=== PATIENT | female | born 1965 | race Caucasian/White ===

== ENCOUNTER 2017-11-19 14:48 | Inpatient (IN) | payer MEDICARE, MEDICAID ==
[2017-11-19 16:14] LABS: % BASOPHILS 0.9 % (0.0-2.0); % EOSINOPHILS 2.3 % (0.0-5.0); % LYMPHOCYTES 29.5 % (20.0-50.0); % MONOCYTES 9.2 % (2.0-10.0); % NEUTROPHILS 58.1 % (40.0-80.0); EOSINOPHILE ABSOLUTE 0.1 Th/cmm (0.1-0.4); HEMATOCRIT 39.2 % (41.0-60); HEMOGLOBIN 13.3 gm/dL (12-16); LYMPHOCYTE ABSOLUTE 1.5 Th/cmm (1.5-3.0); MEAN CELL VOLUME 90.1 fl (81-100); MEAN CORPUSCULAR HEMOGLOBIN 30.6 pg (27.0-31.0); MEAN PLATELET VOLUME 7.3 fl; MONOCYTE ABSOLUTE 0.5 Th/cmm (0.3-1.0); NEUTROPHILE ABSOLUTE 3.1 Th/cmm (1.8-8.0); PLATELET COUNT 195 Th/cmm (150-400); RED BLOOD COUNT 4.35 Mil/cmm (3.80-5.10); RED CELL DISTRIBUTION WIDTH 13.1 % (11.5-20.0); WHITE BLOOD COUNT 5.2 Th/cmm (4.8-10.8)
[2017-11-19 16:48] LABS: ACETAMINOPHEN < 10.0 ug/mL (10.0-30.0); ALB/GLOB RATIO 1.2 (1.0-1.8); ALBUMIN 3.5 gm/dL (3.7-5.3); ALKALINE PHOSPHATASE 95 U/L (34-104); ANION GAP 11.8 (7.0-16.0); BILIRUBIN,TOTAL 0.5 mg/dL (0.3-1.0); BUN - UREA NITROGEN 21 mg/dL (7-25); CARBON DIOXIDE 28.7 mEq/L (21.0-31.0); CHLORIDE 100 mEq/L (98-107); CHOLESTEROL 237 mg/dL (<200); GFR AFRICAN-AMERICAN > 60.0 ml/min (>90); GFR NON AFRICAN-AMERICAN > 60.0 ml/min; GLUCOSE 142 mg/dL (70-105); HDL -HIGH DENSITY LIPOPROTEIN 41 mg/dL (23-92); POTASSIUM SERUM 3.5 mEq/L (3.5-5.1); SALICYLATES (ASPIRIN) < 25.0 mg/L (30.0-100.0); SGOT 26 U/L (13-39); SGPT/ALT 17 U/L (7-52); SODIUM SERUM 137 mEq/L (136-145); TOTAL PROTEIN,SERUM 6.5 gm/dL (6.0-8.3); TRIGLYCERIDES 318 mg/dL (<150)
--- NOTE | 2017-11-19 17:09 | ED Physician Chart ---
ED Chief Complaint/HPI - Patient Information Date Seen:: 11/19/17 Time Seen:: 15:00 Chief Complaint:: Agitation History of Present Illness:: onset x 3 days of agitation and aggressive behavior; no report of trauma, SIs, H /As, neck pain, C/P, SOB, Abd. Pain, A/N/V/D/C, fever, chills, or urinary s/s Allergies:: Allergies Allergy/AdvReac Type Severity Reaction Status Date / Time No Known Allergies Allergy Verified 11/19/17 15:14 Vitals:: Vital Signs - 8 hr 11/19/17 15:05 Temp 97.3 F HR 61 RR 16 BP 123/73 O2 Sat % 97 Historian:: Patient Review:: Nurse's Note Reviewed ED Review of Systems - Review of Systems General/Constitutional: No fever, No chills, No weight loss, No weakness, No diaphoresis, No edema, No loss of appetite Skin: No skin lesions, No rash, No bruising Head: No headache, No light-headedness Eyes: No loss of vision, No pain, No diplopia ENT: No earache, No nasal drainage, No sore throat, No tinnitus Neck: No neck pain, No swelling, No thyromegaly, No stiffness, No mass noted Cardio Vascular: No chest pain, No palpitations, No PND, No orthopnea, No edema Pulmonary: No SOB, No cough, No sputum, No wheezing GI: No nausea, No vomiting, No diarrhea, No pain, No melena, No hematochezia, No constipation, No hematemesis G/U: No dysuria, No frequency, No hematuria, No nacturia [employer]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, No abnormal vaginal bleed, No contraction Musculoskeletal: No bone or joint pain, No back pain, No muscle pain Endocrine: No polyuria, No polydipsia Psychiatric: Prior psych history, Depression, Anxiety, No suicidal ideation, No homicidal ideation, No auditory hallucination, No visual hallucination Hematopoietic: No bruising, No lymphadenopathy Allergic/Immuno: No urticaria, No angioedema Neurological: No syncope, No focal symptoms, No weakness, No paresthesia, No headache, No seizure, No dizziness, No confusion, No vertigo ED Past Medical History - Past Medical History Obtainable: Yes Past Medical History: HTN Family History: HTN Social History: Non Smoker, No Alcohol, No Drug Use, Single, Care Facility Surgical History: None Psychiatricy History: Depression, Bipolar Medication: Reviewed Family Medical History - Family Member Mother History Unknown: Yes ED Physical Exam - Physical Examination General/Constitutional: Awake, Well-developed, well-nourished, Alert, No distress, GCS 15, Non-toxic appearing, Ambulatory Head: Atraumatic Eyes: Lids, conjuctiva normal, PERRL, EOMI Skin: Nl inspection, No rash, No skin lesions, No ecchymosis, Well hydrated, No lymphadenopathy ENMT: External ears, nose nl, TM canals nl, Nasal exam nl, Lips, teeth, gums nl , Oropharynx nl, Tonsils nl Neck: Nontender, Full ROM w/o pain, No JVD, No nuchal rigidity, No bruit, No mass, No stridor Respiratory: Nl effort/Exclusion, Clear to Auscultation, No Wheeze/Rhonchi/Rales Cardio Vascular: RRR, No murmur, gallop, rubs, NL S1 S2, Carotid/Femoral/Distal pulses equal bilaterally GI: No tenderness/rebounding/guarding, No organomegaly, No hernia, Normal BS's, Nondistended, No mass/bruits, No McBurney tenderness : No CVA tenderness Extremities: No tenderness or effusion, Full ROM, normal strength in all extremities, No edema, Normal digits & nails Neuro/Psych: Alert/oriented, DTR's symmetric, Normal sensory exam, Normal motor strength, Judgement/insight normal, Mood normal, Normal gait, No focal deficits Other Neuro/Psych comments:: + Psychomotor Agitation; no SIs; Mood/Affect: Labile Misc: Normal back, No paraspinal tenderness ED Labs/Radiology/EKG Results - Lab Results Results: Laboratory Tests 11/19/17 11/19/17 15:55 15:55 WBC 5.2 RBC 4.35 Hgb 13.3 Hct 39.2 L MCV 90.1 MCH 30.6 MCHC Differential 34.0 RDW 13.1 Plt Count 195 MPV 7.3 Neutrophils % 58.1 Lymphocytes % 29.5 Monocytes % 9.2 Eosinophils % 2.3 Basophils % 0.9 Sodium 137 Potassium 3.5 Chloride 100 Carbon Dioxide 28.7 Anion Gap 11.8 BUN 21 Creatinine 1.0 Est GFR ( Amer) > 60.0 Est GFR (Non-Af Amer) > 60.0 BUN/Creatinine Ratio 21.0 Glucose 142 H Calcium 9.0 Total Bilirubin 0.5 AST 26 ALT 17 Alkaline Phosphatase 95 Total Protein 6.5 Albumin 3.5 L Globulin 3.0 Albumin/Globulin Ratio 1.2 Triglycerides 318 H Cholesterol 237 H LDL Cholesterol Direct 148 HDL Cholesterol 41 Salicylates < 25.0 L Acetaminophen < 10.0 L Ethyl Alcohol < 10 Comments:: unremarkable - EKG Interpretations EKG Time:: 16:06 Rate & Rhythm: 58; SB Comments:: non-specific st-t changes ED Septic Shock - . Is Septic Shock (SBP<90, OR Lactate>4 mmol\L) present?: No - <6hrs of presentation: Vital Signs: Vital Signs - 8 hr 11/19/17 15:05 Temp 97.3 F HR 61 RR 16 BP 123/73 O2 Sat % 97 ED Reassessment (Disposition) - Reassessment Reassessment Condition:: Improved - Diagnosis Diagnosis:: Agitation; Depression; Bipolar Disorder; Psychosis; Medical Clearance - Aftercare/Follow up Instructions Aftercare/Follow-Up Instructions:: Counseled pt regarding lab results/diagnosis & need follow up, Counseled pt & family regarding lab results/diagnosis & need follow up - Patient Disposition Discharge/Transfer:: Acute Care w/in this hosp Admitted to:: [facility] Condition at Disposition:: Stable, Improved ED Discharge Plan - Patient Disposition Instructions: Psychosis
[2017-11-19 17:56] LABS: URINE BILIRUBIN NEGATIVE (NEGATIVE); URINE BLOOD NEGATIVE (NEGATIVE); URINE GLUCOSE (UA) NEGATIVE (NEGATIVE); URINE KETONE NEGATIVE (NEGATIVE); URINE LEUKOCYTE ESTERASE MODERATE (NEGATIVE); URINE MICROSCOPIC INDICATED? YES; URINE NITRATE NEGATIVE (NEGATIVE); URINE PH 6.5 (4.6 - 8.0); URINE PROTEIN NEGATIVE (NEGATIVE); URINE SOURCE CLEAN C; URINE UROBILINOGEN 0.2 E.U./dL (0.2 - 1.0)
[2017-11-19 18:10] LABS: URINE BACTERIA NONE SEEN /hpf (NONE SEEN); URINE CLARITY CLEAR (CLEAR); URINE COLOR YELLOW; URINE EPITHELIAL CELLS FEW /lpf (FEW); URINE RBC NONE SEEN /hpf (0-5)
[2017-11-19 18:51] LABS: AMPHETAMINE URINE NEGATIVE (NEGATIVE); BARBITURATES URINE NEGATIVE (NEGATIVE); BENZODIAZEPINES QUAL URINE POSITIVE (NEGATIVE); CANNABINOID THC NEGATIVE (NEGATIVE); COCAINE METABOLITE QUAL URINE NEGATIVE (NEGATIVE); METHADONE URINE NEGATIVE (NEGATIVE); METHAMPHETAMINES QUAL URINE NEGATIVE (NEGATIVE); OPIATES (MORPHINE) QUAL. URINE NEGATIVE (NEGATIVE); PHENCYCLIDINE (PCP) URINE NEGATIVE (NEGATIVE); TRICYCLICS (TCA) QUAL. URINE NEGATIVE (NEGATIVE)
[2017-11-19 19:17] VITALS: BP 126/70
[2017-11-20] MEDS ORDERED: Albuterol Nebulizer 2.5mg/3mL HHN PRN (00:01)
[2017-11-20] MEDS ORDERED: Acetaminophen 500 MG TAB PO PRN (00:01)
[2017-11-20] MEDS: Levothyroxine 0.1 Mg Tab PO SCH (09:18)
[2017-11-20] MEDS: Potassium Chloride 10 mEq ER Tab PO SCH (09:18)
[2017-11-20] MEDS: Lactobacillus Rhamnosus GG 15 Billion CFU CAP.SPRINK PO SCH (09:18)
[2017-11-20] MEDS: Pantoprazole 40 mg EC Tab PO SCH (09:24)
--- NOTE | 2017-11-20 09:28 | History and Physical ---
History of Present Illness - HPI Chief Complaint: Increased in agitation HPI: Patient was send to ER due to increased in agitation. Vital Signs: Last Vital Signs Temp 97.8 F 11/19/17 20:00 Pulse 60 11/19/17 20:00 Resp 20 11/19/17 20:00 BP 136/60 11/20/17 09:18 Pulse Ox 95 11/19/17 20:00 Past Medical History Cardiovascular: Report: CAD, HTN Pulmonary: Report: No Pertinent Hx RAYON CONER: Report: Dementia GI: Report: No Pertinent Hx Psych: Report: Schizophrenia Musculoskeletal: Report: No Pertinent Hx Rheumatologic: Report: No pertinent Hx Infectious Disease: Report: No Pertinent Hx Renal/: Report: No Pertinent Hx Endocrine: Report: Hyperthyroidism - Past Surgical History Past Surgical History: No pertinent Hx Family Medical History - Family Member Mother History Unknown: Yes Social History Smoke: No Alcohol: None Drugs: None Lives: Snf Domestic Violence: Negative - Medications Home Medications: Home Medication Medication Instructions Recorded Type Acetaminophen [Tylenol Extra 500 mg PO Q6H PRN 11/19/17 History Strength] Albuterol Sulfate [Proair Hfa] 90 mcg IH Q6H PRN 11/19/17 History Cholecalciferol (Vitamin D3) 2 tab PO DAILY 11/19/17 History [Vitamin D3] Divalproex ER [Depakote ER] 1,000 mg PO HS 11/19/17 History Divalproex ER [Depakote ER] 500 mg PO DAILY 11/19/17 History Furosemide [Lasix] 40 mg PO DAILY 11/19/17 History L.acidoph,Paracasei, B.lactis 1 each PO DAILY 11/19/17 History [Probiotic] Levothyroxine [Synthroid] 100 mcg PO DAILY 11/19/17 History Lorazepam [Ativan] 0.5 mg PO BID 11/19/17 History OLANZapine [ZyPREXA] 2.5 mg PO HS 11/19/17 History Pantoprazole [Protonix] 40 mg PO DAILY 11/19/17 History Paroxetine HCl [Paxil] 20 mg PO DAILY 11/19/17 History Potassium Chloride 10 meq PO DAILY 11/19/17 History Propranolol HCl [Inderal] 20 mg PO BID 11/19/17 History - Allergies Allergies/Adverse Reactions: Allergies Allergy/AdvReac Type Severity Reaction Status Date / Time No Known Allergies Allergy Verified 11/19/17 15:14 Review of Systems - Review of Systems Constitutional: Report: No Significant Eyes: Report: No Significant ENT: Report: No Significant Respiratory: Report: No Significant Cardiovascular: Report: No Significant Gastrointestinal: Report: No Significant Genitourinary: Report: No Significant, Frequency Skin: Report: No Significant Neurological: Report: No Significant Physical Exam - Physical Exam HEENT: Report: Ears Nose Throat within normal limits Neck: Report: Within normal limits Cardiovascular Systems: Report: Regular, Rate and Rhythm Respiratory: Report: Breath Sounds are within normal limits Abdomen: Report: Non-tender to palpation Back: Report: Inspection of back is within normal limits. Extremities: Report: Non-tender to palpation. Skin: Report: Color of skin is within normal limits, Warm, Dry Neuro/Psych: Report: Disoriented to name time or place - Lab Results All Lab Results last 24 hours: Laboratory Results - last 24 hr 11/19/17 11/19/17 11/19/17 17:50 17:50 17:50 Urine Source CLEAN C Urine Color YELLOW Urine Clarity CLEAR Urine pH 6.5 Ur Specific [place] 1.010 Urine Protein NEGATIVE Urine Glucose (UA) NEGATIVE Urine Ketones NEGATIVE Urine Blood NEGATIVE Urine Nitrate NEGATIVE Urine Bilirubin NEGATIVE Urine Urobilinogen 0.2 Ur Leukocyte Esterase MODERATE H Urine RBC NONE SEEN Urine WBC 6-10 H Ur Epithelial Cells FEW Urine Bacteria NONE SEEN Urine Test NEGATIVE Urine Opiates Screen NEGATIVE Urine Methadone Screen NEGATIVE Ur Barbiturates Screen NEGATIVE Ur Tricyclics Screen NEGATIVE Ur Phencyclidine Scrn NEGATIVE Amphetamines Screen NEGATIVE U Methamphetamines Scrn NEGATIVE U Benzodiazepines Scrn POSITIVE H U Cocaine Metab Screen NEGATIVE U Cannabinoids Screen NEGATIVE - Assessment Assessment: Patient is awake, alert, calm, confused Dx: Increased in agitation, Schizophrenia, Hypothyroidism, HTN, Obesity. - Plan Plan: Patient under Psychiatric care, Continue [facility] meds. Will continue to monitor.
[2017-11-20 18:58] LABS: A1C % 6.6 % (4.0-6.0)
--- NOTE | 2017-11-21 02:57 | Psychosocial Evaluation ---
DATE OF SERVICE: 11/19/2017 IDENTIFYING DATA: The patient is a 52-year-old woman, resident of a snf. Information obtained by directly interviewing the patient as well as reviewing the admission papers. JUSTIFICATION FOR HOSPITALIZATION: The patient is admitted here on a voluntary basis in view of her acute agitation and trying to hurt herself and hurt others and the patient could not be maintained at a lower level of care and hence has been referred over here. I have been trying to wake the patient up, but the patient is not willing to get out of the bed and provide any information. Review of the chart indicated that the patient has been on ProAir for asthma and also has been receiving the Divalproex Sodium ER 500 mg tablet 1 tablet by mouth twice a day and paroxetine 20 mg in the morning and the patient is also receiving the levothyroxine 100 mcg. The patient is also noted to be on olanzapine 2.5 mg at bedtime. The patient is not able to provide much of information at this time. The patient is very reluctant to give the information. PAST PSYCHIATRIC HISTORY: Details are not known. MEDICAL HISTORY AND PHYSICAL EXAMINATION: Requested and done by Dr. Hightower. SUBSTANCE ABUSE HISTORY: None. PHYSICAL OR SEXUAL ABUSE HISTORY: None. LEGAL PROBLEMS: None at this time. STRENGTH AND ASSETS: The patient seems to be motivated. MENTAL STATUS EXAMINATION: The patient is a 52-year-old morbidly obese, superficially cooperative. Eye contact is poor at this time. Insight and judgment at this time are noted to be impaired. Impulse control is noted to be poor. The patient is still impulsive. Coping skills are noted to be extremely poor. The patient has paranoid delusions. Insight and judgment at this time are noted to be still impaired. Impulse control seems to be limited. Coping skills are noted to be limited. DIAGNOSTIC IMPRESSION: AXIS I: Schizoaffective disorder, depressed at this time. AXIS II: None. AXIS III: As per Dr. Hightower. IMMEDIATE TREATMENT PLAN: The patient is going to be observed on inpatient unit, provided with supportive psychotherapy. The patient is going to be closely monitored. Once stabilized, the patient is going to be discharged. Plan to monitor these medications and readjust. JOB# [id number]
[2017-11-21] MEDS: Lactobacillus Rhamnosus GG 15 Billion CFU CAP.SPRINK PO SCH (08:19)
[2017-11-21] MEDS: Potassium Chloride 10 mEq ER Tab PO SCH (08:19)
[2017-11-21] MEDS: Levothyroxine 0.1 Mg Tab PO SCH (08:20)
--- NOTE | 2017-11-21 09:55 | General Progress Note ---
Subjective - Review of Systems Service Date: 11/21/17 Subjective: I am OK Objective - Results Result Diagrams: 11/19/17 15:55 11/19/17 15:55 Recent Labs: Laboratory Last Values WBC 5.2 Th/cmm (4.8-10.8) 11/19/17 15:55 RBC 4.35 Mil/cmm (3.80-5.10) 11/19/17 15:55 Hgb 13.3 gm/dL (12-16) 11/19/17 15:55 Hct 39.2 % (41.0-60) L 11/19/17 15:55 MCV 90.1 fl (81-100) 11/19/17 15:55 MCH 30.6 pg (27.0-31.0) 11/19/17 15:55 MCHC Differential 34.0 pg (28.0-36.0) 11/19/17 15:55 RDW 13.1 % (11.5-20.0) 11/19/17 15:55 Plt Count 195 Th/cmm (150-400) 11/19/17 15:55 MPV 7.3 fl 11/19/17 15:55 Neutrophils % 58.1 % (40.0-80.0) 11/19/17 15:55 Lymphocytes % 29.5 % (20.0-50.0) 11/19/17 15:55 Monocytes % 9.2 % (2.0-10.0) 11/19/17 15:55 Eosinophils % 2.3 % (0.0-5.0) 11/19/17 15:55 Basophils % 0.9 % (0.0-2.0) 11/19/17 15:55 Sodium 137 mEq/L (136-145) 11/19/17 15:55 Potassium 3.5 mEq/L (3.5-5.1) 11/19/17 15:55 Chloride 100 mEq/L (98-107) 11/19/17 15:55 Carbon Dioxide 28.7 mEq/L (21.0-31.0) 11/19/17 15:55 Anion Gap 11.8 (7.0-16.0) 11/19/17 15:55 BUN 21 mg/dL (7-25) 11/19/17 15:55 Creatinine 1.0 mg/dL (0.6-1.2) 11/19/17 15:55 Est GFR ( Amer) > 60.0 ml/min (>90) 11/19/17 15:55 Est GFR (Non-Af Amer) > 60.0 ml/min 11/19/17 15:55 BUN/Creatinine Ratio 21.0 11/19/17 15:55 Glucose 142 mg/dL (70-105) H 11/19/17 15:55 Hemoglobin A1c % 6.6 % (4.0-6.0) H 11/19/17 15:55 Calcium 9.0 mg/dL (8.6-10.3) 11/19/17 15:55 Total Bilirubin 0.5 mg/dL (0.3-1.0) 11/19/17 15:55 AST 26 U/L (13-39) 11/19/17 15:55 ALT 17 U/L (7-52) 11/19/17 15:55 Alkaline Phosphatase 95 U/L (34-104) 11/19/17 15:55 Total Protein 6.5 gm/dL (6.0-8.3) 11/19/17 15:55 Albumin 3.5 gm/dL (3.7-5.3) L 11/19/17 15:55 Globulin 3.0 gm/dL 11/19/17 15:55 Albumin/Globulin Ratio 1.2 (1.0-1.8) 11/19/17 15:55 Triglycerides 318 mg/dL (<150) H 11/19/17 15:55 Cholesterol 237 mg/dL (<200) H 11/19/17 15:55 LDL Cholesterol Direct 148 mg/dL (75-193) 11/19/17 15:55 HDL Cholesterol 41 mg/dL (23-92) 11/19/17 15:55 TSH 5.22 uIU/ml (0.34-5.60) 11/19/17 15:55 Urine Source CLEAN C 11/19/17 17:50 Urine Color YELLOW 11/19/17 17:50 Urine Clarity CLEAR (CLEAR) 11/19/17 17:50 Urine pH 6.5 (4.6 - 8.0) 11/19/17 17:50 Ur Specific [place] 1.010 (1.005-1.030) 11/19/17 17:50 Urine Protein NEGATIVE mg/dL (NEGATIVE) 11/19/17 17:50 Urine Glucose (UA) NEGATIVE mg/dL (NEGATIVE) 11/19/17 17:50 Urine Ketones NEGATIVE mg/dL (NEGATIVE) 11/19/17 17:50 Urine Blood NEGATIVE (NEGATIVE) 11/19/17 17:50 Urine Nitrate NEGATIVE (NEGATIVE) 11/19/17 17:50 Urine Bilirubin NEGATIVE (NEGATIVE) 11/19/17 17:50 Urine Urobilinogen 0.2 E.U./dL (0.2 - 1.0) 11/19/17 17:50 Ur Leukocyte Esterase MODERATE (NEGATIVE) H 11/19/17 17:50 Urine RBC NONE SEEN /hpf (0-5) 11/19/17 17:50 Urine WBC 6-10 /hpf (0-5) H 11/19/17 17:50 Ur Epithelial Cells FEW /lpf (FEW) 11/19/17 17:50 Urine Bacteria NONE SEEN /hpf (NONE SEEN) 11/19/17 17:50 Urine Test NEGATIVE 11/19/17 17:50 Salicylates < 25.0 mg/L (30.0-100.0) L 11/19/17 15:55 Urine Opiates Screen NEGATIVE (NEGATIVE) 11/19/17 17:50 Urine Methadone Screen NEGATIVE (NEGATIVE) 11/19/17 17:50 Acetaminophen < 10.0 ug/mL (10.0-30.0) L 11/19/17 15:55 Ur Barbiturates Screen NEGATIVE (NEGATIVE) 11/19/17 17:50 Ur Tricyclics Screen NEGATIVE (NEGATIVE) 11/19/17 17:50 Ur Phencyclidine Scrn NEGATIVE (NEGATIVE) 11/19/17 17:50 Amphetamines Screen NEGATIVE (NEGATIVE) 11/19/17 17:50 U Methamphetamines Scrn NEGATIVE (NEGATIVE) 11/19/17 17:50 U Benzodiazepines Scrn POSITIVE (NEGATIVE) H 11/19/17 17:50 U Cocaine Metab Screen NEGATIVE (NEGATIVE) 11/19/17 17:50 U Cannabinoids Screen NEGATIVE (NEGATIVE) 11/19/17 17:50 Ethyl Alcohol < 10 mg/dL (0-10) 11/19/17 15:55 RPR NONREACTIVE (NONREACTIVE) 11/19/17 15:55 - Physical Exam Vitals and I&O: Vital Signs Temp 97.7 F 11/21/17 05:05 Pulse 66 11/21/17 05:05 Resp 18 11/21/17 05:05 BP 129/77 11/21/17 08:20 Pulse Ox 95 11/21/17 05:05 Intake & Output 11/20/17 11/21/17 11/21/17 18:59 06:59 18:59 Intake Total 480 Balance 480 Intake: Oral 480 Other: # Voids 2 Stool Characteristics Formed Formed Active Medications: Current Medications Acetaminophen (Tylenol Extra Strength) 500 mg PO Q6H PRN PRN Reason: pain Stop: 01/19/18 00:00 Divalproex Sodium (Depakote Er) 500 mg PO DAILY INDER PRN Reason: Protocol Stop: 01/19/18 08:59 Last Admin: 11/21/17 08:21 Dose: 500 mg Divalproex Sodium (Depakote Er) 1,000 mg PO HS INDER PRN Reason: Protocol Stop: 01/19/18 20:59 Last Admin: 11/20/17 21:21 Dose: 1,000 mg Furosemide (Lasix) 40 mg PO DAILY INDER Stop: 01/19/18 08:59 Last Admin: 11/21/17 08:20 Dose: 40 mg Lactobacillus Rhamnosus (Culturelle 15b) 1 each PO DAILY INDER Stop: 01/19/18 08:59 Last Admin: 11/21/17 08:19 Dose: 1 each Levothyroxine Sodium (Synthroid) 0.1 mg PO DAILY INDER Stop: 01/19/18 08:59 Last Admin: 11/21/17 08:20 Dose: 0.1 mg Lorazepam (Ativan) 0.5 mg PO BID INDER PRN Reason: Protocol Stop: 01/19/18 08:59 Last Admin: 11/21/17 08:21 Dose: 0.5 mg Miscellaneous (Albuterol Sulfate [Proair Hfa]) 90 mcg IH Q6H PRN PRN Reason: Wheezing Olanzapine (Zyprexa) 2.5 mg PO HS INDER PRN Reason: Protocol Stop: 01/18/18 20:59 Last Admin: 11/20/17 21:21 Dose: 2.5 mg Pantoprazole Sodium (Protonix) 40 mg PO DAILY INDER Stop: 01/19/18 08:59 Last Admin: 11/20/17 09:24 Dose: 40 mg Paroxetine HCl (Paxil) 20 mg PO DAILY INDER Stop: 01/19/18 08:59 Last Admin: 11/21/17 08:19 Dose: 20 mg Potassium Chloride (Klor-Con) 10 meq PO DAILY INDER Stop: 01/19/18 08:59 Last Admin: 11/21/17 08:19 Dose: 10 meq Propranolol HCl (Inderal) 20 mg PO BID INDER Stop: 01/19/18 08:59 Last Admin: 11/20/17 17:45 Dose: 20 mg Vitamin D (Vitamin D) 800 iu PO DAILY INDER Stop: 01/19/18 08:59 Last Admin: 11/21/17 08:19 Dose: 800 iu General: Alert, Other (Confused) HEENT: Atraumatic Neck: Supple Cardiovascular: Regular rate Lungs: Clear to auscultation Abdomen: Bowel sounds Extremities: Other (No edema) Neurological: Other (Unstable gait) Skin: Other (Warm and dry) Psych/Mental Status: Other (Confused, not oriented) Assessment/Plan - Assessment Assessment: Patient is awake, alert, calm, confused Dx: Increased in agitation, Schizophrenia, Hypothyroidism, HTN, Obesity. - Plan Plan: Patient under Psychiatric care, Continue [facility] meds. Will continue to monitor.
[2017-11-21] MEDS: Pantoprazole 40 mg EC Tab PO SCH (11:17)
--- NOTE | 2017-11-22 00:39 | Progress Notes ---
DATE: 11/21/2017 SUBJECTIVE: Staff was spoken to. The patient is interviewed. Mood is noted to be irritable. Affect is constricted. Coping skills are noted to be still poor. Insight and judgment are also noted to be poor. The patient has been having acute mood swings. The patient is currently on olanzapine 2.5 mg at bedtime and Depakote 1500 mg a day and the patient has been able to tolerate. No side effects to the medications are noted. The patient is not ready to be discharged to a lower level of care in view of her acute psychosis and mood swings. [facility]# [id number]
[2017-11-22] MEDS: Lactobacillus Rhamnosus GG 15 Billion CFU CAP.SPRINK PO SCH (09:49)
[2017-11-22] MEDS: Potassium Chloride 10 mEq ER Tab PO SCH (09:49)
[2017-11-22] MEDS: Pantoprazole 40 mg EC Tab PO SCH (09:49)
[2017-11-22] MEDS: Levothyroxine 0.1 Mg Tab PO SCH (09:59)
--- NOTE | 2017-11-22 18:50 | Progress Notes ---
DATE: 11/22/2017 SUBJECTIVE: Staff was spoken to. The patient is interviewed. Mood is noted to be irritable. Affect is constricted. Mood swings are still a concern. The patient is reporting that while she was in [place]. She was on the Prolixin that worked much better for her rather than the olanzapine that she is getting. She is also worried about gaining too much of weight with it. ASSESSMENT: The patient is still psychotic and impulsive. PLAN: To continue the patient with the supportive therapy and change the olanzapine to Prolixin 2 mg in the morning and then the patient is going to be followed up with the supportive therapy. JOB# [id number]
--- NOTE | 2017-11-22 23:01 | Consultation ---
DATE OF CONSULTATION: 11/21/2017 TYPE OF CONSULTATION: Psychology. REFERRING PHYSICIAN: Dr. Polina Michael. HISTORY OF PRESENT ILLNESS: The patient is a 52-year-old female. According to records, she is a resident of a prison. The following is by review of the medical record as well as by the patient's self report. The patient is being admitted due to acute agitation and apparently attempts to hurt herself and others. The patient presents as somewhat fatigued and withdrawn. The patient responded minimally to the clinical interview questions, but is mostly reluctant to provide information. The patient declined to answer questions about suicidal ideation, plan or intention. PAST MEDICAL HISTORY: Please see history and physical by Dr. Hightower. PAST PSYCHIATRIC HISTORY: Details are unknown and are unavailable at the time of this clinical interview. SUBSTANCE ABUSE HISTORY: None. PSYCHOSOCIAL HISTORY: The patient is a resident of a prison. The patient did not answer questions about occupational or educational history or pentecostal affiliation. She did not answer questions about physical or sexual abuse history or about legal issues. She did not answer questions about support system. MENTAL STATUS EXAMINATION: The patient appears to be her stated age and is presenting as morbidly obese. The patient's attitude is superficially cooperative, yet hesitant and reluctant and selectively mute at times. Eye contact is poor. Speech is slow and delayed. Mood is depressed. Affect is constricted. Thought process shows to be concrete and somewhat confused. The patient denied any suicidal ideation, plan or intention. The patient seems to be experiencing paranoid ideation. The patient denied any auditory or visual hallucinations. The patient's behavior has been withdrawn and unmotivated and anergic. Impulse control is limited. Concentration is poor. The patient did not participate in the memory assessment. Sensorium is alert and oriented to self and place only. The patient did not participate in the interpretation of proverbs. Insight is poor. Judgment is compromised. DIAGNOSTIC IMPRESSION: AXIS I: Schizoaffective disorder, depressed. AXIS II: Deferred. AXIS III: Please see history and physical by Dr. Hightower. TREATMENT PLAN: The patient has been seen by Dr. Michael for psychiatric evaluation and for the management of the patient's psychotropic medications. We will provide supportive psychotherapy. We will provide reality orientation and reality integration. We will provide coping strategies for chronic severe mental illness. We will provide motivational enhancement for the patient to become compliant and stay compliant with all aspects of her care and treatment. The patient is passively accepting this treatment. Psychiatry has suggested that the medications will be monitored closely and readjusted. The patient will be encouraged to contract for safety and be able to demonstrate emotional and behavioral regulation prior to discharge. Thank you, Dr. Michael for this consult and the opportunity to participate with you in this patient's care. [facility]# [id number] [facility] HOSPITALPatricia
[2017-11-23] MEDS: Pantoprazole 40 mg EC Tab PO SCH (12:39)
[2017-11-23] MEDS: Lactobacillus Rhamnosus GG 15 Billion CFU CAP.SPRINK PO SCH (12:39)
[2017-11-23] MEDS: Levothyroxine 0.1 Mg Tab PO SCH (12:39)
[2017-11-23] MEDS: Potassium Chloride 10 mEq ER Tab PO SCH (12:39)
[2017-11-23] MEDS ORDERED: Haloperidol Lactate 5 mg/mL 1mL Vial ONE (19:17)
[2017-11-23] MEDS ORDERED: Haloperidol Lactate 5 mg/mL 1mL Vial IM ONE (19:26)
--- NOTE | 2017-11-23 22:11 | Progress Notes ---
DATE: 11/23/2017 SUBJECTIVE: Staff was spoken to. The patient is interviewed. Mood is noted to be irritable. Affect is constricted. The patient is going on a tangent. Insight and judgement are noted to be still impaired. Impulse control seems to be fair. The patient is reporting that she did well on the Prolixin and hence Prolixin has been started yesterday. No side effects to the medications are noted today. ASSESSMENT: The patient is still psychotic. PLAN: To continue the patient with the supportive therapy, encouraged the patient to verbalize the concerns rather than to act out. JOB# [id number]
--- NOTE | 2017-11-24 09:04 | General Progress Note ---
Subjective - Review of Systems Service Date: 11/24/17 Subjective: I am OK Objective - Results Result Diagrams: 11/19/17 15:55 11/19/17 15:55 Recent Labs: Laboratory Last Values WBC 5.2 Th/cmm (4.8-10.8) 11/19/17 15:55 RBC 4.35 Mil/cmm (3.80-5.10) 11/19/17 15:55 Hgb 13.3 gm/dL (12-16) 11/19/17 15:55 Hct 39.2 % (41.0-60) L 11/19/17 15:55 MCV 90.1 fl (81-100) 11/19/17 15:55 MCH 30.6 pg (27.0-31.0) 11/19/17 15:55 MCHC Differential 34.0 pg (28.0-36.0) 11/19/17 15:55 RDW 13.1 % (11.5-20.0) 11/19/17 15:55 Plt Count 195 Th/cmm (150-400) 11/19/17 15:55 MPV 7.3 fl 11/19/17 15:55 Neutrophils % 58.1 % (40.0-80.0) 11/19/17 15:55 Lymphocytes % 29.5 % (20.0-50.0) 11/19/17 15:55 Monocytes % 9.2 % (2.0-10.0) 11/19/17 15:55 Eosinophils % 2.3 % (0.0-5.0) 11/19/17 15:55 Basophils % 0.9 % (0.0-2.0) 11/19/17 15:55 Sodium 137 mEq/L (136-145) 11/19/17 15:55 Potassium 3.5 mEq/L (3.5-5.1) 11/19/17 15:55 Chloride 100 mEq/L (98-107) 11/19/17 15:55 Carbon Dioxide 28.7 mEq/L (21.0-31.0) 11/19/17 15:55 Anion Gap 11.8 (7.0-16.0) 11/19/17 15:55 BUN 21 mg/dL (7-25) 11/19/17 15:55 Creatinine 1.0 mg/dL (0.6-1.2) 11/19/17 15:55 Est GFR ( Amer) > 60.0 ml/min (>90) 11/19/17 15:55 Est GFR (Non-Af Amer) > 60.0 ml/min 11/19/17 15:55 BUN/Creatinine Ratio 21.0 11/19/17 15:55 Glucose 142 mg/dL (70-105) H 11/19/17 15:55 Hemoglobin A1c % 6.6 % (4.0-6.0) H 11/19/17 15:55 Calcium 9.0 mg/dL (8.6-10.3) 11/19/17 15:55 Total Bilirubin 0.5 mg/dL (0.3-1.0) 11/19/17 15:55 AST 26 U/L (13-39) 11/19/17 15:55 ALT 17 U/L (7-52) 11/19/17 15:55 Alkaline Phosphatase 95 U/L (34-104) 11/19/17 15:55 Total Protein 6.5 gm/dL (6.0-8.3) 11/19/17 15:55 Albumin 3.5 gm/dL (3.7-5.3) L 11/19/17 15:55 Globulin 3.0 gm/dL 11/19/17 15:55 Albumin/Globulin Ratio 1.2 (1.0-1.8) 11/19/17 15:55 Triglycerides 318 mg/dL (<150) H 11/19/17 15:55 Cholesterol 237 mg/dL (<200) H 11/19/17 15:55 LDL Cholesterol Direct 148 mg/dL (75-193) 11/19/17 15:55 HDL Cholesterol 41 mg/dL (23-92) 11/19/17 15:55 TSH 5.22 uIU/ml (0.34-5.60) 11/19/17 15:55 Urine Source CLEAN C 11/19/17 17:50 Urine Color YELLOW 11/19/17 17:50 Urine Clarity CLEAR (CLEAR) 11/19/17 17:50 Urine pH 6.5 (4.6 - 8.0) 11/19/17 17:50 Ur Specific [place] 1.010 (1.005-1.030) 11/19/17 17:50 Urine Protein NEGATIVE mg/dL (NEGATIVE) 11/19/17 17:50 Urine Glucose (UA) NEGATIVE mg/dL (NEGATIVE) 11/19/17 17:50 Urine Ketones NEGATIVE mg/dL (NEGATIVE) 11/19/17 17:50 Urine Blood NEGATIVE (NEGATIVE) 11/19/17 17:50 Urine Nitrate NEGATIVE (NEGATIVE) 11/19/17 17:50 Urine Bilirubin NEGATIVE (NEGATIVE) 11/19/17 17:50 Urine Urobilinogen 0.2 E.U./dL (0.2 - 1.0) 11/19/17 17:50 Ur Leukocyte Esterase MODERATE (NEGATIVE) H 11/19/17 17:50 Urine RBC NONE SEEN /hpf (0-5) 11/19/17 17:50 Urine WBC 6-10 /hpf (0-5) H 11/19/17 17:50 Ur Epithelial Cells FEW /lpf (FEW) 11/19/17 17:50 Urine Bacteria NONE SEEN /hpf (NONE SEEN) 11/19/17 17:50 Urine Test NEGATIVE 11/19/17 17:50 Salicylates < 25.0 mg/L (30.0-100.0) L 11/19/17 15:55 Urine Opiates Screen NEGATIVE (NEGATIVE) 11/19/17 17:50 Urine Methadone Screen NEGATIVE (NEGATIVE) 11/19/17 17:50 Acetaminophen < 10.0 ug/mL (10.0-30.0) L 11/19/17 15:55 Ur Barbiturates Screen NEGATIVE (NEGATIVE) 11/19/17 17:50 Ur Tricyclics Screen NEGATIVE (NEGATIVE) 11/19/17 17:50 Ur Phencyclidine Scrn NEGATIVE (NEGATIVE) 11/19/17 17:50 Amphetamines Screen NEGATIVE (NEGATIVE) 11/19/17 17:50 U Methamphetamines Scrn NEGATIVE (NEGATIVE) 11/19/17 17:50 U Benzodiazepines Scrn POSITIVE (NEGATIVE) H 11/19/17 17:50 U Cocaine Metab Screen NEGATIVE (NEGATIVE) 11/19/17 17:50 U Cannabinoids Screen NEGATIVE (NEGATIVE) 11/19/17 17:50 Ethyl Alcohol < 10 mg/dL (0-10) 11/19/17 15:55 RPR NONREACTIVE (NONREACTIVE) 11/19/17 15:55 - Physical Exam Vitals and I&O: Vital Signs Temp 98.7 F 11/24/17 05:41 Pulse 67 11/24/17 05:41 Resp 18 11/24/17 05:41 BP 110/60 11/24/17 05:41 Pulse Ox 96 11/24/17 05:41 Intake & Output 11/23/17 11/24/17 11/24/17 18:59 06:59 18:59 Intake Total 240 Balance 240 Intake: Oral 240 Other: # Voids 2 # Bowel Movements 0 Active Medications: Current Medications Acetaminophen (Tylenol Extra Strength) 500 mg PO Q6H PRN PRN Reason: pain Stop: 01/19/18 00:00 Last Admin: 11/21/17 14:59 Dose: 500 mg Albuterol Sulfate (Albuterol 2.5mg/3ml Neb Ud) 2.5 mg HHN Q6H PRN PRN Reason: Wheezing Divalproex Sodium (Depakote Er) 500 mg PO DAILY INDER PRN Reason: Protocol Stop: 01/19/18 08:59 Last Admin: 11/23/17 12:39 Dose: Not Given Divalproex Sodium (Depakote Er) 1,000 mg PO HS INDER PRN Reason: Protocol Stop: 01/19/18 20:59 Last Admin: 11/23/17 21:25 Dose: Not Given Fluphenazine HCl (Prolixin) 2 mg PO DAILY INDER PRN Reason: Protocol Stop: 01/22/18 08:59 Last Admin: 11/23/17 12:39 Dose: Not Given Furosemide (Lasix) 40 mg PO DAILY INDER Stop: 01/19/18 08:59 Last Admin: 11/23/17 12:39 Dose: Not Given Lactobacillus Rhamnosus (Culturelle 15b) 1 each PO DAILY INDER Stop: 01/19/18 08:59 Last Admin: 11/23/17 12:39 Dose: Not Given Levothyroxine Sodium (Synthroid) 0.1 mg PO DAILY INDER Stop: 01/19/18 08:59 Last Admin: 11/23/17 12:39 Dose: Not Given Lorazepam (Ativan) 0.5 mg PO BID INDER PRN Reason: Protocol Stop: 01/19/18 08:59 Last Admin: 11/23/17 17:46 Dose: 0.5 mg Lorazepam (Ativan) 0.5 mg PO Q6HR PRN; Protocol PRN Reason: Anxiety Stop: 01/22/18 14:08 Last Admin: 11/23/17 14:20 Dose: 0.5 mg Pantoprazole Sodium (Protonix) 40 mg PO DAILY [facility] Stop: 01/19/18 08:59 Last Admin: 11/23/17 12:39 Dose: Not Given Paroxetine HCl (Paxil) 20 mg PO DAILY [facility] Stop: 01/19/18 08:59 Last Admin: 11/23/17 12:39 Dose: Not Given Potassium Chloride (Klor-Con) 10 meq PO DAILY INDER Stop: 01/19/18 08:59 Last Admin: 11/23/17 12:39 Dose: Not Given Propranolol HCl (Inderal) 20 mg PO BID [facility] Stop: 01/19/18 08:59 Last Admin: 11/23/17 17:46 Dose: 20 mg Vitamin D (Vitamin D) 800 iu PO DAILY [facility] Stop: 01/19/18 08:59 Last Admin: 11/23/17 12:40 Dose: Not Given General: Alert, Other (Confused) HEENT: Atraumatic Neck: Supple Cardiovascular: Regular rate Lungs: Clear to auscultation Abdomen: Bowel sounds Extremities: Other (No edema) Neurological: Other (Unstable gait) Skin: Other (There are schatchs in both arm that she did last lassiter. ) Psych/Mental Status: Other (Confused, not oriented) Assessment/Plan - Assessment Assessment: Past lassiter Patient scratched herself in both arms. today she is awake, alert, calm, confused Dx: Increased in agitation, Schizophrenia, Hypothyroidism, HTN, Obesity. - Plan Plan: Patient under Psychiatric care, Continue with SNF meds. Will continue to monitor. Nutritional Asmnt/Malnutr-PDOC - Dietary Evaluation Malnutrition Findings (Please click <Entered> for more info): Nutritional Asmnt/Malnutrition Start: 11/21/17 14: 41 Text: Status: Complete Freq: Document 11/21/17 14:59 MABEL (Rec: 11/21/17 15:10 MABEL [email or web address]) Nutritional Asmnt/Malnutrition Patient General Information Nutritional Screening Moderate Risk Consult Diagnosis psychosis Pertinent Medical Hx/Surgical Hx CAD, HTN, dementia, schizophrenia, hyperthyroidism Subjective Information Consult received for pt requested speacial food order. Pt seen lying in bed at time of visit, stated she is not feeling well, not hungry, she changed her mind and does not want to eat anything. Spoke with RN in the afternoon, pt did not had breakfast and lunch today d/t headach and not feeling well. Current Diet Order/ Nutrition Support cardiac Pertinent Medications culturelle, lasix, synthroid, protonix, kcl, vit D Pertinent Labs 11/19 glucose 142, A1c 6.6 Nutritional Hx/Data Height 1.65 m Height (Calculated Centimeters) 165.1 Current Weight (lbs) 116.12 kg Weight (Calculated Kilograms) 116.1 Weight (Calculated Grams) 912402.6 [place] Body Weight 125 Body Mass Index (BMI) 42.5 Weight Status Morbidly Obese GI Symptoms GI Symptoms None Last BM not indicated Difficult in: None Skin Integrity/Comment: itching, dryness, Sadiq 19 Current %PO Negligible < 25% Estimated Nutritional Goals BEE in Kcals: Adj wt of IBW Calories/Kcals/Kg 25-30 Kcals Calculated [id number] Protein: Adj wt of IBW Protein g/k Protein Calculated 72 Fluid: ml 1800-2160ml (1ml/kcal) Nutritional Problem 2. Problem Problem altered nutrition related labs Etiology endocrine dysfunction Signs/Symptoms: glucose 142, A1c 6.6 1. Problem Problem obesity Etiology possible excessive energy intake Signs/Symptoms: BMI 42.6 Malnutrition Alert Protein-Calorie Malnutrition N/A Is there a minimum of two criteria No selected? Query Text:Check all the applicable criteria. A minimum of two criteria are recommended for diagnosis of either severe or non-severe malnutrition. Intervention/Recommendation Comments 1. Continue with current diet as ordered. If glucose goes high, will consider [id number] diet. 2. Monitor PO intake, wt, labs and skin integrity 3. F/U as high risk in 2-3 days, 11/23-11/24 Expected Outcomes/Goals Expected Outcomes/Goals 1. PO intake to meet at least 75% of nutritional needs. 2. Wt stability, skin to remain intact, labs to approach WNL.
[2017-11-24] MEDS: Potassium Chloride 10 mEq ER Tab PO SCH (09:18)
[2017-11-24] MEDS: Levothyroxine 0.1 Mg Tab PO SCH (09:19)
[2017-11-24] MEDS: Lactobacillus Rhamnosus GG 15 Billion CFU CAP.SPRINK PO SCH (09:19)
[2017-11-24] MEDS: Pantoprazole 40 mg EC Tab PO SCH (09:19)
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
--- NOTE | 2017-11-25 08:48 | General Progress Note ---
Subjective - Review of Systems Service Date: 11/25/17 Subjective: I am OK Objective - Results Result Diagrams: 11/19/17 15:55 11/19/17 15:55 Recent Labs: Laboratory Last Values WBC 5.2 Th/cmm (4.8-10.8) 11/19/17 15:55 RBC 4.35 Mil/cmm (3.80-5.10) 11/19/17 15:55 Hgb 13.3 gm/dL (12-16) 11/19/17 15:55 Hct 39.2 % (41.0-60) L 11/19/17 15:55 MCV 90.1 fl (81-100) 11/19/17 15:55 MCH 30.6 pg (27.0-31.0) 11/19/17 15:55 MCHC Differential 34.0 pg (28.0-36.0) 11/19/17 15:55 RDW 13.1 % (11.5-20.0) 11/19/17 15:55 Plt Count 195 Th/cmm (150-400) 11/19/17 15:55 MPV 7.3 fl 11/19/17 15:55 Neutrophils % 58.1 % (40.0-80.0) 11/19/17 15:55 Lymphocytes % 29.5 % (20.0-50.0) 11/19/17 15:55 Monocytes % 9.2 % (2.0-10.0) 11/19/17 15:55 Eosinophils % 2.3 % (0.0-5.0) 11/19/17 15:55 Basophils % 0.9 % (0.0-2.0) 11/19/17 15:55 Sodium 137 mEq/L (136-145) 11/19/17 15:55 Potassium 3.5 mEq/L (3.5-5.1) 11/19/17 15:55 Chloride 100 mEq/L (98-107) 11/19/17 15:55 Carbon Dioxide 28.7 mEq/L (21.0-31.0) 11/19/17 15:55 Anion Gap 11.8 (7.0-16.0) 11/19/17 15:55 BUN 21 mg/dL (7-25) 11/19/17 15:55 Creatinine 1.0 mg/dL (0.6-1.2) 11/19/17 15:55 Est GFR ( Amer) > 60.0 ml/min (>90) 11/19/17 15:55 Est GFR (Non-Af Amer) > 60.0 ml/min 11/19/17 15:55 BUN/Creatinine Ratio 21.0 11/19/17 15:55 Glucose 142 mg/dL (70-105) H 11/19/17 15:55 Hemoglobin A1c % 6.6 % (4.0-6.0) H 11/19/17 15:55 Calcium 9.0 mg/dL (8.6-10.3) 11/19/17 15:55 Total Bilirubin 0.5 mg/dL (0.3-1.0) 11/19/17 15:55 AST 26 U/L (13-39) 11/19/17 15:55 ALT 17 U/L (7-52) 11/19/17 15:55 Alkaline Phosphatase 95 U/L (34-104) 11/19/17 15:55 Total Protein 6.5 gm/dL (6.0-8.3) 11/19/17 15:55 Albumin 3.5 gm/dL (3.7-5.3) L 11/19/17 15:55 Globulin 3.0 gm/dL 11/19/17 15:55 Albumin/Globulin Ratio 1.2 (1.0-1.8) 11/19/17 15:55 Triglycerides 318 mg/dL (<150) H 11/19/17 15:55 Cholesterol 237 mg/dL (<200) H 11/19/17 15:55 LDL Cholesterol Direct 148 mg/dL (75-193) 11/19/17 15:55 HDL Cholesterol 41 mg/dL (23-92) 11/19/17 15:55 TSH 5.22 uIU/ml (0.34-5.60) 11/19/17 15:55 Urine Source CLEAN C 11/19/17 17:50 Urine Color YELLOW 11/19/17 17:50 Urine Clarity CLEAR (CLEAR) 11/19/17 17:50 Urine pH 6.5 (4.6 - 8.0) 11/19/17 17:50 Ur Specific [place] 1.010 (1.005-1.030) 11/19/17 17:50 Urine Protein NEGATIVE mg/dL (NEGATIVE) 11/19/17 17:50 Urine Glucose (UA) NEGATIVE mg/dL (NEGATIVE) 11/19/17 17:50 Urine Ketones NEGATIVE mg/dL (NEGATIVE) 11/19/17 17:50 Urine Blood NEGATIVE (NEGATIVE) 11/19/17 17:50 Urine Nitrate NEGATIVE (NEGATIVE) 11/19/17 17:50 Urine Bilirubin NEGATIVE (NEGATIVE) 11/19/17 17:50 Urine Urobilinogen 0.2 E.U./dL (0.2 - 1.0) 11/19/17 17:50 Ur Leukocyte Esterase MODERATE (NEGATIVE) H 11/19/17 17:50 Urine RBC NONE SEEN /hpf (0-5) 11/19/17 17:50 Urine WBC 6-10 /hpf (0-5) H 11/19/17 17:50 Ur Epithelial Cells FEW /lpf (FEW) 11/19/17 17:50 Urine Bacteria NONE SEEN /hpf (NONE SEEN) 11/19/17 17:50 Urine Test NEGATIVE 11/19/17 17:50 Salicylates < 25.0 mg/L (30.0-100.0) L 11/19/17 15:55 Urine Opiates Screen NEGATIVE (NEGATIVE) 11/19/17 17:50 Urine Methadone Screen NEGATIVE (NEGATIVE) 11/19/17 17:50 Acetaminophen < 10.0 ug/mL (10.0-30.0) L 11/19/17 15:55 Ur Barbiturates Screen NEGATIVE (NEGATIVE) 11/19/17 17:50 Ur Tricyclics Screen NEGATIVE (NEGATIVE) 11/19/17 17:50 Ur Phencyclidine Scrn NEGATIVE (NEGATIVE) 11/19/17 17:50 Amphetamines Screen NEGATIVE (NEGATIVE) 11/19/17 17:50 U Methamphetamines Scrn NEGATIVE (NEGATIVE) 11/19/17 17:50 U Benzodiazepines Scrn POSITIVE (NEGATIVE) H 11/19/17 17:50 U Cocaine Metab Screen NEGATIVE (NEGATIVE) 11/19/17 17:50 U Cannabinoids Screen NEGATIVE (NEGATIVE) 11/19/17 17:50 Ethyl Alcohol < 10 mg/dL (0-10) 11/19/17 15:55 RPR NONREACTIVE (NONREACTIVE) 11/19/17 15:55 - Physical Exam Vitals and I&O: Vital Signs Temp 98 F 11/25/17 05:04 Pulse 79 11/25/17 05:04 Resp 18 11/25/17 05:04 BP 115/73 11/25/17 05:04 Pulse Ox 97 11/25/17 05:04 Intake & Output 11/24/17 11/25/17 11/25/17 18:59 06:59 18:59 Intake Total 760 120 Balance 760 120 Intake: Oral 760 120 Other: # Voids 3 1 # Bowel Movements 1 0 Active Medications: Current Medications Acetaminophen (Tylenol Extra Strength) 500 mg PO Q6H PRN PRN Reason: pain Stop: 01/19/18 00:00 Last Admin: 11/21/17 14:59 Dose: 500 mg Albuterol Sulfate (Albuterol 2.5mg/3ml Neb Ud) 2.5 mg HHN Q6H PRN PRN Reason: Wheezing Divalproex Sodium (Depakote Er) 500 mg PO DAILY INDER PRN Reason: Protocol Stop: 01/19/18 08:59 Last Admin: 11/24/17 09:19 Dose: 500 mg Divalproex Sodium (Depakote Er) 1,000 mg PO HS INDER PRN Reason: Protocol Stop: 01/19/18 20:59 Last Admin: 11/24/17 21:18 Dose: Not Given Fluphenazine HCl (Prolixin) 2 mg PO BID INDER PRN Reason: Protocol Stop: 01/24/18 08:59 Furosemide (Lasix) 40 mg PO DAILY INDER Stop: 01/19/18 08:59 Last Admin: 11/24/17 09:20 Dose: Not Given Lactobacillus Rhamnosus (Culturelle 15b) 1 each PO DAILY INDER Stop: 01/19/18 08:59 Last Admin: 11/24/17 09:19 Dose: 1 each Levothyroxine Sodium (Synthroid) 0.1 mg PO DAILY INDER Stop: 01/19/18 08:59 Last Admin: 11/24/17 09:19 Dose: 0.1 mg Lorazepam (Ativan) 0.5 mg PO BID INEDR PRN Reason: Protocol Stop: 01/19/18 08:59 Last Admin: 11/24/17 17:54 Dose: 0.5 mg Lorazepam (Ativan) 0.5 mg PO Q6HR PRN; Protocol PRN Reason: Anxiety Stop: 01/22/18 14:08 Last Admin: 11/23/17 14:20 Dose: 0.5 mg Pantoprazole Sodium (Protonix) 40 mg PO DAILY [facility] Stop: 01/19/18 08:59 Last Admin: 11/24/17 09:19 Dose: 40 mg Paroxetine HCl (Paxil) 20 mg PO DAILY INDER Stop: 01/19/18 08:59 Last Admin: 11/24/17 09:19 Dose: 20 mg Potassium Chloride (Klor-Con) 10 meq PO DAILY INDER Stop: 01/19/18 08:59 Last Admin: 11/24/17 09:18 Dose: 10 meq Propranolol HCl (Inderal) 20 mg PO BID [facility] Stop: 01/19/18 08:59 Last Admin: 11/24/17 17:54 Dose: Not Given Vitamin D (Vitamin D) 800 iu PO DAILY [facility] Stop: 01/19/18 08:59 Last Admin: 11/24/17 09:17 Dose: 800 iu General: Alert, Other (Confused) HEENT: Atraumatic Neck: Supple Cardiovascular: Regular rate Lungs: Clear to auscultation Abdomen: Bowel sounds Extremities: Other (No edema) Neurological: Other (Unstable gait) Skin: Other (There are schatchs in both arm that she did last lassiter. ) Psych/Mental Status: Other (Confused, not oriented) Assessment/Plan - Assessment Assessment: Past lassiter Patient scratched herself in both arms. today she is awake, alert, calm, confused Dx: Increased in agitation, Schizophrenia, Hypothyroidism, HTN, Obesity. - Plan Plan: Patient under Psychiatric care, Continue with SNF meds. Will continue to monitor. Nutritional Asmnt/Malnutr-PDOC - Dietary Evaluation Malnutrition Findings (Please click <Entered> for more info): Nutritional Asmnt/Malnutrition Start: 11/21/17 14: 41 Text: Status: Complete Freq: Document 11/21/17 14:59 MABEL (Rec: 11/21/17 15:10 MABEL [email or web address]) Nutritional Asmnt/Malnutrition Patient General Information Nutritional Screening Moderate Risk Consult Diagnosis psychosis Pertinent Medical Hx/Surgical Hx CAD, HTN, dementia, schizophrenia, hyperthyroidism Subjective Information Consult received for pt requested speacial food order. Pt seen lying in bed at time of visit, stated she is not feeling well, not hungry, she changed her mind and does not want to eat anything. Spoke with RN in the afternoon, pt did not had breakfast and lunch today d/t headach and not feeling well. Current Diet Order/ Nutrition Support cardiac Pertinent Medications culturelle, lasix, synthroid, protonix, kcl, vit D Pertinent Labs 11/19 glucose 142, A1c 6.6 Nutritional Hx/Data Height 1.65 m Height (Calculated Centimeters) 165.1 Current Weight (lbs) 116.12 kg Weight (Calculated Kilograms) 116.1 Weight (Calculated Grams) 437335.6 [place] Body Weight 125 Body Mass Index (BMI) 42.5 Weight Status Morbidly Obese GI Symptoms GI Symptoms None Last BM not indicated Difficult in: None Skin Integrity/Comment: itching, dryness, Sadiq 19 Current %PO Negligible < 25% Estimated Nutritional Goals BEE in Kcals: Adj wt of IBW Calories/Kcals/Kg 25-30 Kcals Calculated [id number] Protein: Adj wt of IBW Protein g/k Protein Calculated 72 Fluid: ml 1800-2160ml (1ml/kcal) Nutritional Problem 2. Problem Problem altered nutrition related labs Etiology endocrine dysfunction Signs/Symptoms: glucose 142, A1c 6.6 1. Problem Problem obesity Etiology possible excessive energy intake Signs/Symptoms: BMI 42.6 Malnutrition Alert Protein-Calorie Malnutrition N/A Is there a minimum of two criteria No selected? Query Text:Check all the applicable criteria. A minimum of two criteria are recommended for diagnosis of either severe or non-severe malnutrition. Intervention/Recommendation Comments 1. Continue with current diet as ordered. If glucose goes high, will consider [id number] diet. 2. Monitor PO intake, wt, labs and skin integrity 3. F/U as high risk in 2-3 days, 11/23-11/24 Expected Outcomes/Goals Expected Outcomes/Goals 1. PO intake to meet at least 75% of nutritional needs. 2. Wt stability, skin to remain intact, labs to approach WNL.
[2017-11-25] MEDS: Lactobacillus Rhamnosus GG 15 Billion CFU CAP.SPRINK PO SCH (09:30)
[2017-11-25] MEDS: Potassium Chloride 10 mEq ER Tab PO SCH (09:30)
[2017-11-25] MEDS: Pantoprazole 40 mg EC Tab PO SCH (09:30)
[2017-11-25] MEDS: Levothyroxine 0.1 Mg Tab PO SCH (09:30)
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
== END 2017-11-25 14:10 | DRG 885 ==
LOC: ER 14:48 → GERO2 17:45
PROVIDERS: ADMIT Psychiatry & Neurology Psychiatry; ATTEND Psychiatry & Neurology Psychiatry
DX: F25.1 Schizoaffective disorder, depressive type (principal); Z68.41 Body mass index [BMI] 40.0-44.9, adult; E03.9 Hypothyroidism, unspecified; I25.10 Atherosclerotic heart disease of native coronary artery without angina pectoris; M19.90 Unspecified osteoarthritis, unspecified site; I10 Essential (primary) hypertension; E66.9 Obesity, unspecified; Z82.49 Family history of ischemic heart disease and other diseases of the circulatory system
CPT/HCPCS: 36415-UA; 80053-TC; 80061-TC; 80307; 80320-TC; 80329-TC; 81001-TC; 81025-TC; 83036-90; 84443-TC; 85025-TC; 86592-TC; 93005; J1200; J1630; J2060; Z7610